=== PATIENT | male | born 1965 | race Caucasian/White ===

== ENCOUNTER → 2022-02-13 | Outpatient (CLI) | payer OTHER, SELFPAY ==
--- NOTE | 2022-02-13 06:52 | CT_ITS ---
STUDY: CT ABDOMEN AND PELVIS WITH CONTRAST REASON FOR EXAM: Male, 56 years old. Lower abdominal pain. History of prior hernia repairs and cholecystectomy. RADIATION DOSAGE (If Supplied By Facility): CTDIvol = ( 13.26 ) mGy, DLP = ( 778.46 ) mGycm TECHNIQUE: Transaxial images were obtained from the dome of the diaphragm to the symphysis pubis with oral contrast. Oral and amp;amp; IV Readi-CAT and amp;amp; 100mL Isovue-300 was administered. Sagittal and coronal images were reconstructed. Individualized dose optimization techniques were used for this CT. COMPARISON: None. FINDINGS: Minimal degree of increased linear markings at the right lung base suggestive of atelectasis. The visualized portions of the heart are within normal limits. Normal liver. There are surgical clips in the gallbladder fossa consistent with a prior cholecystectomy. Normal spleen. Normal pancreas. Normal bilateral adrenal glands. Normal right kidney. Normal left kidney. There is a small hiatal hernia. Normal small intestine. A moderate amount of fecal material is seen throughout the colon. There are multiple colonic diverticula consistent with diverticulosis. The appendix is visualized and appears normal. Normal abdominal aorta. Normal inferior vena cava. Normal retroperitoneum. Normal urinary bladder. There are prostatic calcifications. Normal abdominal wall. There is 50% loss of height of the superior endplate of the L3 vertebral body most likely secondary to injury. Degenerative changes of the right sacroiliac joint. CT/Abdomen/Pelvis WITH Contrast IMPRESSION: Sigmoid diverticulosis. Central prostatic calcifications. 50% loss of height of the superior endplate of the L3 vertebrae in keeping with prior injury. Electronically Signed: Jessee Portillo MD at 12:36 EDT ,
[2022-02-13 07:21] LABS: CREATININE FINGERSTICK 1.1 mg/dL (0.70-1.30); EGFR FINGERSTICK > 60.0000 mL/min (>60)
== END | disposition home or self-care (01) ==
PROVIDERS: Referring Provider Internal Medicine Gastroenterology; Visit Provider Internal Medicine Gastroenterology
DX: R10.84 Generalized abdominal pain (principal)
CPT/HCPCS: 74177; Q9967

== ENCOUNTER → 2022-07-24 | Outpatient (CLI) | payer OTHER, SELFPAY ==
--- NOTE | 2022-07-24 10:45 | US_ITS ---
STUDY: SCROTUM ULTRASOUND REASON FOR EXAM: Male, 57 years old. L TESTICULAR PAIN TECHNIQUE: Ultrasound evaluation of the scrotum was performed with color Doppler and static joel-scale imaging. COMPARISON: CT scan abdomen and pelvis February 13, 2022 FINDINGS: Is visualized skin thickening of the scrotal wall. RIGHT TESTICLE INTRATESTICULAR: There is a normal size of the right testicle. The right testicle measures 4.8 x 2.9 x 2.6 cm. There is a homogenous echotexture. There is normal arterial and normal venous vascularity. There is no demonstrated right testicular mass or cyst. EXTRATESTICULAR: The epididymis is normal in size. The epididymis head measures 0.7 x 0.9 x 1.1 cm. There is normal vascularity of the epididymis. There is no demonstrated epididymal cystic structure. There is a large hydrocele. There is no demonstrated varicocele. There is no demonstrated extratesticular mass or cyst. LEFT TESTICLE INTRATESTICULAR: There is a normal size of the left testicle. The left testicle measures 4.9 x 2.1 x 2.7 cm. There is a homogenous echotexture. There is normal arterial and normal venous vascularity. There is no demonstrated left testicular mass or cyst. EXTRATESTICULAR: The epididymis is normal in size. The epididymis head measures 1.2 x 0.9 x 1.0 cm. There is normal vascularity of the epididymis. There is a demonstrated 3 x 3 x 2 m hypoechoic cystic structure in the epididymal body. There is a large hydrocele. There is no demonstrated varicocele. There is no demonstrated extratesticular mass or cyst. US/Testicular with Arterial Flow IMPRESSION: Normal bilateral testicles. There is edema of the scrotal wall. Bilateral moderate to large hydroceles with some debris suggesting chronicity, allowing for differences in technique findings were suggestive of hydroceles on the prior study with partial visualization of the genitalia February 13, 2022.. No torsion. Electronically Signed: Yashira Cunningham MD at 22:16 EDT ,
== END | disposition home or self-care (01) ==
LOC: US 10:41
PROVIDERS: PCP Internal Medicine; Referring Provider Internal Medicine; Visit Provider Internal Medicine
DX: N50.812 Left testicular pain (principal)
CPT/HCPCS: 76870; 93976

== ENCOUNTER 2024-08-02 14:04 | Emergency (ER) | payer OTHER, SELFPAY ==
[2024-08-02] VITALS (11 sets, daily range): BP systolic 133–171; BP diastolic 85–100; PULSE 56–72; RESP 16–24; TEMP 36.3–36.6; O2SAT 95–99; BMI 28.8
--- NOTE | 2024-08-02 14:17 | EKG12_ITS ---
Test Reason : CP Blood Pressure : */* mmHG Vent. Rate : 58 BPM Atrial Rate : 58 BPM P-R Int : 138 ms QRS Dur : 96 ms QT Int : 418 ms P-R-T Axes : 39 17 32 degrees QTcB Int : 410 ms Sinus bradycardia Otherwise normal ECG Confirmed by JAYLEN CHAIDEZ, JOHN ([id number]), development editor ARIELLE GLASS ([id number]) on 08/04/2024 8:25:59 AM Referred By: JOSE/KENIA Confirmed By: JOHN YORK MD
--- NOTE | 2024-08-02 14:24 | EDS_ITS ---
HPI <JOSÉ Sinclair - Last Filed: 08/02/24 19:20> History of Present Illness Chief Complaint: Chest Pain Narrative Narrative: Patient presenting today with chest pain and dyspnea that he has had for about a week or so. He reports that 10 days ago he got back from [place], his symptoms have worsened since then but he did have some mild dyspnea prior to going on the trip. He denies any history of blood clots or recent surgery, no leg swelling. He reports left-sided intermittent chest pain primarily with exertion. 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 He did have a negative cardiac stress test in February after going to the ED at [facility] for chest pain. He does follow with a transportation security officer. He does have a PMH of HTN and HLD. He reports a previous tobacco use history, he stopped smoking in the late . PFSH <JOSÉ Sinclair - Last Filed: 08/02/24 19:20> [facility] Medical History FHx: cholecystectomy Hypertension Hypercholesteremia Normal cardiac stress test Home Medications ?Medication ?Instructions ?Recorded ?Last Taken ?Type amlodipine 5 mg tablet 5 mg PO DAILY 08/02/24 Unkno wn History secukinumab 150 mg/mL subcutaneous mg subcut 08/02/24 Unknown History pen injector (Cosentyx Pen 300 mg/2 Pens () Allergy/AdvReac Type Severity Reaction Status Date / Time cephalexin (From Keflex) Allergy Intermediate Rash Verified 08/02/24 14:06 Social History Smoking Status: Former smoker ROS <JOSÉ Sinclair - Last Filed: 08/02/24 19:20> ROS ED Constitutional Constitutional ED: Denies chills or fever(s) Cardiovascular Cardiovascular: Reports chest pain Respiratory/Chest Respiratory/Chest: Reports dyspnea on exertion; Denies cough, tachypnea or wheezing Gastrointestinal Gastrointestinal: Denies abdominal pain, nausea or vomiting Musculoskeletal Musculoskeletal: Denies arthralgias or myalgias Integumentary Denies rash Neurologic Neurologic: Denies weakness EXAM <JOSÉ Sinclair - Last Filed: 08/02/24 19:20> Physical Exam Const Vital Signs: 08/02/24 14:05 08/02/24 14:18 08/02/24 14:52 Temperature 97.8 F Temperature Source Temporal Pulse Rate 72 Respiratory Rate 20 H Respiratory Effort Normal Non-Labored Blood Pressure 171/100 H Blood Pressure Mean 123 Pulse Ox 99 Oxygen Delivery Method Room Air Room Air 08/02/24 15:04 08/02/24 15:20 08/02/24 15:30 Temperature Temperature Source Pulse Rate 61 64 60 Respiratory Rate 18 20 H 20 H Respiratory Effort Blood Pressure 138/89 H 133/91 H Blood Pressure Mean 105 105 Pulse Ox 96 96 96 Oxygen Delivery Method Room Air 08/02/24 15:45 08/02/24 16:00 08/02/24 16:00 Temperature Temperature Source Pulse Rate 60 65 56 L Respiratory Rate 24 H 16 21 H Respiratory Effort Blood Pressure 140/91 H 133/89 H 133/89 H Blood Pressure Mean 107 103 103 Pulse Ox 96 97 95 Oxygen Delivery Method Room Air 08/02/24 16:15 08/02/24 16:30 08/02/24 16:45 Temperature Temperature Source Pulse Rate 59 L 64 58 L Respiratory Rate 19 H 20 H 19 H Respiratory Effort Blood Pressure 135/92 H 134/96 H 135/92 H Blood Pressure Mean 104 108 106 Pulse Ox 96 97 96 Oxygen Delivery Method 08/02/24 17:00 08/02/24 17:38 Temperature 97.4 F L Temperature Source Pulse Rate 56 L 58 L Respiratory Rate 19 H 19 H Respiratory Effort Blood Pressure 139/91 H 145/85 H Blood Pressure Mean 106 105 Pulse Ox 95 96 Oxygen Delivery Method Positive well nourished, well developed and no apparent distress General Appearance ED: well developed HEENT Reports normocephalic and head/scalp atraumatic Mouth ED: Yes moist mucous membranes normal Eyes PERRL and EOMs intact bilaterally Neck full ROM and supple Chest Wall inspection of chest normal Resp normal respiratory effort and clear to auscultation bilaterally Cardio regular rate and regular rhythm GI soft to palpation, non-tender, non-distended and no masses Back/Spine normal ROM and normal to inspection Extremity normal to inspection and full ROM General Extremety ED: Negative for edema General Extremity: Negative for edema Neuro oriented x3, CN's II-XII intact bilaterally, moves all extremities, no focal motor deficits and no sensory deficits noted Sensorium / Orientation: awake and alert Psych mental status grossly normal and thought process normal Skin no rashes or lesions noted and no wounds <Dr. Sesar Corado DO - Last Filed: 08/02/24 15:51> Physical Exam Const Vital Signs: 08/02/24 14:05 08/02/24 14:18 08/02/24 14:52 Temperature 97.8 F Temperature Source Temporal Pulse Rate 72 Respiratory Rate 20 H Respiratory Effort Normal Non-Labored Blood Pressure 171/100 H Blood Pressure Mean 123 Pulse Ox 99 Oxygen Delivery Method Room Air Room Air 08/02/24 15:04 08/02/24 15:20 08/02/24 15:30 Temperature Temperature Source Pulse Rate 61 64 60 Respiratory Rate 18 20 H 20 H Respiratory Effort Blood Pressure 138/89 H 133/91 H Blood Pressure Mean 105 105 Pulse Ox 96 96 96 Oxygen Delivery Method Room Air 08/02/24 15:45 08/02/24 16:00 08/02/24 16:00 Temperature Temperature Source Pulse Rate 60 65 56 L Respiratory Rate 24 H 16 21 H Respiratory Effort Blood Pressure 140/91 H 133/89 H 133/89 H Blood Pressure Mean 107 103 103 Pulse Ox 96 97 95 Oxygen Delivery Method Room Air 08/02/24 16:15 08/02/24 16:30 08/02/24 16:45 Temperature Temperature Source Pulse Rate 59 L 64 58 L Respiratory Rate 19 H 20 H 19 H Respiratory Effort Blood Pressure 135/92 H 134/96 H 135/92 H Blood Pressure Mean 104 108 106 Pulse Ox 96 97 96 Oxygen Delivery Method 08/02/24 17:00 08/02/24 17:38 Temperature 97.4 F L Temperature Source Pulse Rate 56 L 58 L Respiratory Rate 19 H 19 H Respiratory Effort Blood Pressure 139/91 H 145/85 H Blood Pressure Mean 106 105 Pulse Ox 95 96 Oxygen Delivery Method MDM <JOSÉ Sinclair - Last Filed: 08/02/24 19:20> [facility] MDM Narrative Medical decision making narrative: Patient presenting with exertional dyspnea and chest discomfort he has had for about a week or so. His symptoms worsened after getting back from a trip to [place]. 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 He had a negative stress test in February. Given his recent travel, D-dimer will be obtained to assess for PE. Cardiac labs obtained, his CBC, BMP, and delta troponin are unremarkable aside from a slightly low potassium at 3.2. Although he did have a recent negative stress test, his symptoms are concerning for cardiac etiology. I did offer admission to the hospital for further cardiac workup. Patient reports that he really would not like to stay in the hospital, he does have a transportation security officer that he can follow-up with. I did recommend that he call them tomorrow to schedule further outpatient workup. Strict return i nstructions were discussed with him, he understands reasons to return. He is comfortable with this plan and will be discharged home in stable condition. Lab Data Labs: Laboratory Results - last 24 hr 08/02/24 08/02/24 14:40 16:39 WBC 8.6 RBC 4.20 L Hgb 13.2 Hct 36.4 L MCV 86.7 MCH 31.4 MCHC 36.3 H RDW Std Deviation 41.8 RDW Coeff of Gisselle 13.4 Plt Count 258 MPV 9.2 Immature Gran % (Auto) 0.600 Neut % (Auto) 59.4 Lymph % (Auto) 30.5 Parke % (Auto) 8.0 Eos % (Auto) 0.8 Baso % (Auto) 0.7 Absolute Neuts (auto) 5.1 Absolute Lymphs (auto) 2.63 Nucleated RBC % 0 D-Dimer Quant (PE/DVT) 0.27 Sodium 139 Potassium 3.2 L Chloride 102 Carbon Dioxide 24.6 Anion Gap 12 BUN 13 Creatinine 1.00 Estim Creat Clear Calc 85.86 Est GFR (MDRD) Non-Af 87 BUN/Creatinine Ratio 12.5 Glucose 89 Calcium 9.3 Troponin T High Sens < 6 Troponin T Hi Sens 2 Hr < 6 Radiography X-Ray: Read by ED Physician Diagnostic Testing: Clinical Impression(s) from Imaging Studies Chest X-Ray 08/02/24 14:45 IMPRESSION: No acute process. Reading Location: [facility] <Dr. Sesar Corado, DO - Last Filed: 08/02/24 15:51> [facility] History & Record Review Discussion w/independent historian: Patient and Significant other Lab Data Attestation: I reviewed the patient's lab results. Labs: Laboratory Results - last 24 hr 08/02/24 08/02/24 14:40 16:39 WBC 8.6 RBC 4.20 L Hgb 13.2 Hct 36.4 L MCV 86.7 MCH 31.4 MCHC 36.3 H RDW Std Deviation 41.8 RDW Coeff of Gisselle 13.4 Plt Count 258 MPV 9.2 Immature Gran % (Auto) 0.600 Neut % (Auto) 59.4 Lymph % (Auto) 30.5 Parke % (Auto) 8.0 Eos % (Auto) 0.8 Baso % (Auto) 0.7 Absolute Neuts (auto) 5.1 Absolute Lymphs (auto) 2.63 Nucleated RBC % 0 D-Dimer Quant (PE/DVT) 0.27 Sodium 139 Potassium 3.2 L Chloride 102 Carbon Dioxide 24.6 Anion Gap 12 BUN 13 Creatinine 1.00 Estim Creat Clear Calc 85.86 Est GFR (MDRD) Non-Af 87 BUN/Creatinine Ratio 12.5 Glucose 89 Calcium 9.3 Troponin T High Sens < 6 Troponin T Hi Sens 2 Hr < 6 Radiography Diagnostic Testing: Clinical Impression(s) from Imaging Studies Chest X-Ray 08/02/24 14:45 IMPRESSION: No acute process. Reading [facility] EKG Initial EKG: Attestation: I personally reviewed and interpreted this EKG as follows: Comments: Sinus bradycardia ventricular rate of 58 bpm Treatment and Re-Evaluation :: I have personally performed a face to face assessment of the patient and have reviewed the ABRAHAM Note. I performed a substantive portion of the visit including all aspects of the following. My veloz findings include: History is 59-year-old male presenting to the emergency room with exertional shortness of breath a chest discomfort. Patient has a history of hypertension takes amlodipine. States he recently traveled to [place] and back. He notes ran t he has been having dyspnea with exertion and this chest discomfort. Particularly it is occurring at work when he is feeling which should be easy jobs for him. He states he had a stress test as an outpatient last fall. Exam is afebrile vital signs are stable. Patient had to be slightly hypertensive which is come down from its own. Heart rate without murmur lung sounds are clear and equal. No significant leg swelling. Good pulses upper lower extremities. Medical Decison Making EKG is nonischemic. My independent interpretation of the chest x-ray is no acute process. Initial troponin is negative. We are currently waiting on D-dimer. If this is positive CT a. If it is negative we will discuss with the patient admission versus home and outpatient follow-up. Discharge Plan Triage Chief Complaint: Chest Pain ED Midlevel Provider: Holly Rivera ED Provider: Sesar Corado Dx/Rx/DC Orders Clinical Impression: Chest pain Instructions: ED Chest Pain, Uncertain Cause Prescriptions: No Action amlodipine 5 mg tablet 5 mg PO DAILY Cosentyx Pen (2 Pens) 150 mg/mL pen injector SUBCUT Patient Comments: [NO ORIGINAL SIG] Primary Care Provider: FREDIS PUENTES Referrals: FREDIS PUENTES MD [Primary Care Provider] - Activity Restrictions/Additional Instructions: Please call your transportation security officer tomorrow to schedule further outpatient testing. You may benefit from having a heart catheterization and further cardiac testing. Return for any worsening symptoms. Print Language: Guatemalan Disposition Disposition: Home, Self Care Discharge Date/Time: 08/02/24 18:00
--- NOTE | 2024-08-02 14:45 | RAD_ITS ---
PROCEDURE: CHEST PA AND LATERAL 08/02/2024 REASON FOR EXAM: CHEST PAIN TECHNIQUE: Frontal and lateral views of the chest. COMPARISON: None FINDINGS: Hardware: None Heart: Size is normal. Mediastinum: Normal contours. Lungs: Lungs are clear. No pleural effusions. No abnormal thickening of the interstitium. Bones: Unremarkable. RAD/Chest PA and Lateral IMPRESSION: No acute process. Reading Location: [facility]
[2024-08-02 14:57] LABS: Absolute Lymphocyte Count 2.63 X10^3/uL (0.83-4.51); Absolute Neutrophil Count 5.1 X10^3/uL (2.0-7.7); Basophil# 0.06 X10^3/uL; Basophil% 0.7 % (0-1); Eosinophil# 0.07 X10^3/uL; Eosinophils% 0.8 % (0-5); Hematocrit 36.4 % (40-54); Hemoglobin 13.2 g/dL (13.0-16.5); Lymphocyte # 2.63 X10^3/ul (0.83-4.51); Lymphocyte % 30.5 % (19-41); Mean Corp Hgb Conc 36.3 g/dL (32-36); Mean Corpuscular Hgb 31.4 pg (27.0-32.0); Mean Corpuscular Volume 86.7 fL (80-94); Mean Platelet Vol. 9.2 fl (6.2-12.0); Monocyte# 0.69 X10^3/uL; NRBC Flagged by Analyzer 0 % (0-5); Neutrophil # 5.12 X10^3/uL (2.7-7.7); Neutrophil % 59.4 % (47-70); Platelet Count 258 K/mm3 (150-450); RBC Distribution Width CV 13.4 % (11.6-14.6); RBC Distribution Width SD 41.8 fl (35.1-43.9); White Blood Count 8.6 K/mm3 (4.4-11.0)
[2024-08-02 15:35] LABS: Anion Gap 12 (5-15); BUN 13 mg/dL (4-19); BUN/Creat Ratio 12.5 RATIO (10-20); Calcium,Total 9.3 mg/dL (7.6-11.0); Carbon Dioxide 24.6 mmol/L (21.0-32.0); Chloride 102 mmol/L (98-108); EST Glomerular Filtration Rate 87 (>60); Estimated Creatinine Clearance 85.86 ml/min (50-250); Glucose 89 mg/dL (70-99); Potassium 3.2 mmol/L (3.3-5.1); Sodium Level 139 mmol/L (133-145); Troponin T High Sensitivity < 6 ng/L (<=22)
[2024-08-02 16:11] LABS: D-Dimer Quantitative (DVT/PE) 0.27 FEU/ug/m (0.27-0.49)
[2024-08-02 17:36] LABS: Troponin T High Sens 2 HR < 6 ng/L (<=22)
== END 2024-08-02 18:00 | disposition home or self-care (01) ==
PROVIDERS: Physician Assistant; Emergency Provider Emergency Medicine; PCP Internal Medicine; Visit Provider Emergency Medicine
DX: R07.9 Chest pain, unspecified (principal); I10 Essential (primary) hypertension; E78.5 Hyperlipidemia, unspecified; Z87.891 Personal history of nicotine dependence; Z90.49 Acquired absence of other specified parts of digestive tract; Z79.899 Other long term (current) drug therapy
CPT/HCPCS: 71046; 80048; 84484; 85025; 85379; 93005; 99284; A4216

== ENCOUNTER → 2024-10-15 | Outpatient (CLI) | payer OTHER, SELFPAY | END | disposition home or self-care (01) | LOC: MTLAB 13:44 | PROVIDERS: PCP Internal Medicine; Referring Provider Physician Assistant Medical; Visit Provider Physician Assistant Medical | DX: L40.0 Psoriasis vulgaris (principal); L40.59 Other psoriatic arthropathy; Z79.899 Other long term (current) drug therapy | CPT/HCPCS: 36415; 86480 ==